=== PATIENT | male | born 1945 | race Caucasian/White ===

== ENCOUNTER 2022-10-13 09:52 | Outpatient (CLI) | payer OTHER | END 2022-10-13 10:00 | disposition home or self-care (01) | LOC: RAD 09:52 | PROVIDERS: ATTEND Physical Medicine & Rehabilitation | DX: M54.59 Other low back pain (principal) ==

== ENCOUNTER 2022-11-26 09:58 | Outpatient (CLI) | payer OTHER | END 2022-11-26 10:01 | disposition home or self-care (01) | LOC: RAD 09:58 | PROVIDERS: ATTEND Physical Medicine & Rehabilitation | DX: M25.551 Pain in right hip (principal) ==